=== PATIENT | female | born 1995 ===

== ENCOUNTER 2019-01-04 09:42 | Emergency (ER) | payer OTHER ==
[2019-01-04] MEDS ORDERED: hydrALAZINE HCL 20 MG/1 ML ONE (10:45)
[2019-01-04] MEDS ORDERED: FUROSEMIDE 40 MG/4 ML VIAL ONE (10:45)
[2019-01-04] MEDS ORDERED: LABETALOL HCL 20 MG/4 ML SYRINGE IV ONE (10:45)
[2019-01-04] MEDS ORDERED: cefTRIAXone SODIUM 1 GM INJ ONE (10:45)
[2019-01-04] MEDS ORDERED: LEVALBUTEROL NEB 1.25 MG/3 ML VIAL.NEB NEB ONE (10:45)
[2019-01-04] MEDS ORDERED: 0.9 % SODIUM CHLORIDE 100 ML IV.SOLN IV ONE (10:45)
[2019-01-04] MEDS ORDERED: IPRATROPIUM BROMIDE 0.5 MG/2.5 ML AMPUL.NEB NEB ONE (10:45)
[2019-01-10 14:03] LABS: APPEARANCE,URINE CLEAR (CLEAR); COLOR,URINE YELLOW (YELLOW); OCCULT BLOOD,URINE NEGATIVE (NEGATIVE); UROBILINOGEN URINE 0.2 Eu (0.2-1.0)
[2019-01-11 07:36] LABS: eGFR (Non-African) > 60
[2019-01-11 07:37] LABS: BASOPHILS % 3.8 % (0.0-1.5); NEUTROPHILS # 14.4 # k/uL (1.4-7.7); SEGMENTED NEUTROPHILS % 81 % (39-79)
--- NOTE | 2019-01-28 13:26 | Diagnostic Imaging Report ---
ELLY MAJOR [facility] [address] [address] Report Submission Date: Jan 04, 2019 11:10:19 AM CDT Patient Study Name: SUSANNA SHORT Date: Jan 04, 2019 10:29:39 AM CDT Modality Type: US Gender: F Description: US OB LIMITED : 89 Institution: [facility] Physician: ELLY MAJOR Ob ultrasound limited History: Short of breath evaluate heart rate Limited sonographic images were obtained. Amniotic fluid index could not be obtained due to the patient's inability to lie flat secondary to cough and shortness breath. Presentation is cephalic. heart rate ranges from 136 to 152 beats per minute. Impression: Amniotic fluid index could not be evaluated. Cephalic presentation. heart rate as described. Electronically signed on Jan 04, 2019 11:10:19 AM CDT by: Eli GEE
--- NOTE | 2019-01-28 13:27 | Diagnostic Imaging Report ---
ELLY MAJOR [facility] [address] [facility] [address] [place], [place]. [address] Report Submission Date: Jan 04, 2019 10:09:41 AM CDT Patient Study Name: SUSANNA SHORT Date: Jan 04, 2019 9:43:21 AM CDT Modality Type: DX Gender: F Description: CHEST 1VIEW : 89 Institution: [facility] Physician: ELLY MAJOR CHEST, ONE VIEW CLINICAL INDICATION: Note time : 01/04/2019 10:09:49 AM User : Chelly Ruano PCXR, SOA, PRODUCTIVE COUGH X4 DAYS, PT STATES SOME CHEST TIGHTNESS. PT STATES BEING 8 MONTHS , PT CONSENTED TO HAVE EXAM AND WAS SHIELDED FOR EXAM (DICOM Hx) (DICOM Hx) FINDINGS: Single frontal view of the chest without prior for comparison shows bilateral pulmonary vascular congestion. There is no pneumothorax. The heart size is enlarged. IMPRESSION: Pulmonary vascular congestion with cardiomegaly Electronically signed on Jan 04, 2019 10:09:41 AM CDT by: Beka GEE
== END 2019-01-04 12:55 | disposition short-term general hospital (02) ==
LOC: ED 09:42
DX: O99.513 Diseases of the respiratory system complicating pregnancy, third trimester (principal); J45.901 Unspecified asthma with (acute) exacerbation; J18.9 Pneumonia, unspecified organism; Z3A.36 36 weeks gestation of pregnancy
CPT/HCPCS: 36415; 71045; 76805; 80053; 81002; 83880; 84550; 85025; 85379; 87040; 94640; 96374; 99284; J0360; J0696; J1940; J7614; S1016